=== PATIENT | male | born 2000 | race Caucasian/White ===

== ENCOUNTER 2025-05-19 08:52 | Outpatient (CLI) | payer OTHER, SELFPAY ==
--- NOTE | 2025-05-19 08:45 | RT.EKG_ITS ---
APPROVED REPORT Exam: Resting ECG Reason for Exam: Evaluation needed Patient Location: O HR:78 bpm ECG Measurements Heart Rate 78 AXIS IN 142 P 63 QRSd 109 QRS 4 QT 358 T -3 QTc 408 Conclusion Sinus arrhythmia...V-rate 63- 90, variation>10% Probable left atrial enlargement...P >50mS, <-0.10mV V1
== END 2025-05-19 08:53 | disposition home or self-care (01) ==
LOC: CARDOPNVT 08:52
PROVIDERS: Visit Provider Internal Medicine Cardiovascular Disease
DX: R07.89 Other chest pain (principal)
CPT/HCPCS: 93005; 93010

== ENCOUNTER → 2025-06-12 02:20 | Outpatient (CLI) | payer OTHER, SELFPAY ==
--- NOTE | 2025-06-12 08:54 | DI.RAD_ITS ---
Exam(s) XR CHEST 2V PA LATERAL EXAM: XR CHEST 2V PA LATERAL CLINICAL HISTORY: RESPIRATORY CHEST PAIN R07.1. TECHNIQUE: 2D digital imaging was performed. COMPARISON: No exams were available for comparison FINDINGS: 2 views: Heart size is normal. The mediastinum is not widened. Lungs are clear. No infiltrates nor pleural effusions. There is a cleft in the superior aspect of the medial right clavicle which is probably developmental; doubtful for fracture. IMPRESSION: No acute pulmonary findings. DATA REPOSITORY: RADIATION DOSE DELIVERED:
== END ==
LOC: DI 02:20
PROVIDERS: Visit Provider Chiropractor
DX: R07.1 Chest pain on breathing (principal)
CPT/HCPCS: 71046

== ENCOUNTER 2025-06-12 03:13 | Outpatient (CLI) | payer OTHER, SELFPAY ==
[2025-06-12] MEDS: Levalbuterol HFA 15 GM INH 4 PUFF IH (09:04)
[2025-06-12] MEDS: Inhaler, Assist Device 1 EACH MC (09:04)
--- NOTE | 2025-06-14 15:22 | W.PFT ---
Date of service: 06/12/25 Time of Service: 08:11 Pulmonary Function Test Result Indications: Chest pain Impression 1. Good patient effort was noted. ATS standards for reproducibility were met. 2. No obstruction was present on spirometry. The FVC was mildly reduced at 78% predicted. Cannot rule out restrictive lung disease 3. Following the administration of a bronchodilator there was not a significant response 4. Consider full PFT's to evaluate for restrictive lung disease, if clinically appropriate
--- NOTE | 2025-06-16 11:56 | W.PFT ---
Date of service: 06/12/25 Time of Service: 08:11 Pulmonary Function Test Result Indications: 1. Good patient effort was noted. ATS standards for reproducibility were met. 2. No obstruction was seen on spirometry. The FVC was mildly reduced at 78% predicted, suggestive of a mild restrictive process. Can consider full PFT's to further evaluate, if clincally indicated 3. Following the administration of a bronchodilator there was not a significant response
== END 2025-06-12 03:14 | disposition home or self-care (01) ==
PROVIDERS: PCP Internal Medicine; Visit Provider Chiropractor
DX: R07.1 Chest pain on breathing (principal); R91.8 Other nonspecific abnormal finding of lung field
CPT/HCPCS: 94060